=== PATIENT | female | born 2000 | race Hispanic/Latino ===

== ENCOUNTER 2025-08-16 17:46 | Emergency (ER) | payer OTHER ==
[~2025-08-16] VITALS: Ht 162.6 cm; Wt 65.8 kg
--- NOTE | 2025-08-16 17:59 | ERN ---
ED Note History of Present Illness Stated Complaint: BLOOD IN URINE Chief Complaint: Blood in Urine: Time Seen by MD: 17:52 Dictation: PATIENT IS A 25-YEAR-OLD FEMALE COMING IN TODAY WITH COMPLAINTS OF URINARY URGENCY AND FREQUENCY THIS STARTED OVER THE WEEKEND. NO FEVER NO CHILLS NO NAUSEA VOMITING. SHE HAD DENIES SUPRAPUBIC PAIN OR FLANK PAIN. SHE STATES SHE WAS WORKING AND UNABLE TO GO TO HER DOCTOR AND THEN TODAY, STARTED HAVING HEMATURIA. AGAIN SHE STATES THIS IS PAINLESS. STATES SHE HAS A HISTORY OF UTIS Allergies: Coded Allergies: No Known Drug Allergies (Unverified Allergy, Unknown, 08/16/25) Past Medical History Past Medical History: GERD Surgical History: None RN Note Reviewed/Agreed w/PFSH: Yes Review of System Dictation CONSTITUTIONAL: NEGATIVE EXCEPT FOR HPI HEAD/FACE: NEGATIVE EXCEPT FOR HPI EENT: NEGATIVE EXCEPT FOR HPI RESPIRATORY: NEGATIVE EXCEPT FOR HPI GASTROINTESTINAL/ABDOMINAL: NEGATIVE EXCEPT FOR HPI GENITOURINARY: NEGATIVE EXCEPT FOR HPI PAINLESS HEMATURIA MUSCULOSKELETAL: NEGATIVE EXCEPT FOR HPI INTEGUMENTARY: NEGATIVE EXCEPT FOR HPI NEUROLOGICAL/PSYCH: NEGATIVE EXCEPT FOR HPI HEMATOLOGIC/LYMPHATIC: NEGATIVE EXCEPT FOR HPI ALL SYSTEMS NEGATIVE, EXCEPT NOTED ABOVE. 13 POINT REVIEW OF SYSTEMS ASSESSED AND ALL NEGATIVE EXCEPT FOR ABOVE. Initial Vital Sign VS Vital Signs Date Time Temp Pulse Resp B/P (MAP) Pulse Ox O2 Delivery O2 Flow Rate FiO2 08/16/25 17:49 98.2 81 18 127/81 98 Physical Exam Dictation VITAL SIGNS REVIEWED GENERAL APPEARANCE: ALERT, ORIENTED X 3, NO ACUTE DISTRESS, WELL DEVELOPED, NOURISHED. 0/10, NO PAIN IN TRIAGE HEAD AND FACE: NON-TRAUMATIC. EYES: PERRL, PINK CONJUNCTIVAS, EYELID NO TRAUMA, ANTERIOR CHAMBER WITH ARCUS SENILIS. EARS: PINNAS INTACT AND NO SIGNS OF TRAUMA OR ERYTHEMA EAR CANALS CLEAR AND NO DISCHARGE TM NO ERYTHEMA NOSE: NO DISCHARGE, NO BLEEDING. OROPHARYNX: MOUTH NORMAL, TONGUE PINK, PHARYNX CLEAR,NO ERYTHEMA, TONSILS NO EXUDATES, NO ABSCESSES NOTED, MUCOUS MEM BRANE MOIST NECK: SUPPLE, NON-TENDER, NO THYROMEGALY, NO MASSES, NO JVD, NO BRUITS BREAST:DEFERRED CHEST:NO TENDERNESS, NO CREPITUS, NO PARADOXICAL MOVEMENT, NO RETRACTIONS LUNGS:CLEAR, WELL-VENTILATED, SYMMETRIC, NO RALES, NO WHEEZING, NO RHONCHI, NO STRIDOR, GOOD BREATH SOUNDS BILATERALLY HEART: REGULAR RATE, REGULAR RHYTHM, NO MURMUR, NO GALLOPS VASCULAR: NO PERIPHERAL EDEMA, ABDOMEN: SOFT, POSITIVE BOWEL SOUNDS, NONDISTENDED, NO GUARDING, NONTENDER, NO REBOUND, NO MASSES NO HEPATOMEGALY, NO SPLENOMEGALY, NO TEJEDA'S SIGN, NO HERNIAS. RECTAL: DEFERRED GENITAL: DEFERRED NEUROLOGICAL: NORMAL SPEECH, MOTOR FUNCTION INTACT, SENSORY FUNCTION INTACT MUSCULOSKELETAL: NECK NONTENDER, FULL RANGE OF MOTION, BACK NONTENDER, FULL RANGE OF MOTION, EXTREMITIES: NONTENDER, FULL RANGE OF MOTION SKIN: COLOR PINK, DRY, NO TURGOR, NO RASH, NO LACERATIONS, NO ABRASIONS, NO CONTUSIONS. LYMPHATIC: DEFERRED Results (Laboratory/Radiology) Laboratory/Radiology Laboratory Tests Test 08/16/25 18:00 Urine Color YELLOW (YELLOW) Urine Appearance CLOUDY (CLEAR) H Urine pH 7.0 (5.0-8.0) Urine Specific [place] 1.013 (1.001-1.031) Urine Protein 30 mg/dL (NEGATIVE) H Urine Glucose (UA) NEGATIVE mg/dL (NEGATIVE) Urine Ketones NEGATIVE mg/dL (NEGATIVE) Urine Occult Blood LARGE (NEGATIVE) H Urine Nitrate NEGATIVE (NEGATIVE) Urine Bilirubin NEGATIVE mg/dL (NEGATIVE) Urine Urobilinogen 0.2 mg/dL (0.2-1.0) Urine Leukocyte Esterase 500 Taylor/uL (NEGATIVE) H Urine RBC >100 /HPF (0-1) H Urine WBC 51-100 /HPF (0-1) H Urine WBC Clumps (Auto) FEW /HPF (0-1) Urine Squamous Epithelial Cells FEW /HPF (0-2) Urine Other Crystals (Auto) 6 /HPF (None Seen) Urine Bacteria RARE /HPF (None Seen) Urine Yeast FEW /HPF (None Seen) Urine HCG, Qualitative NEGATIVE (NEGATIVE) Labs Reviewed?: Yes ED Course ED Course Orders Procedure Category Date Status Time ,Urine Test LAB 08/16/25 Complete 17:57 Urinalysis Profile LAB 08/16/25 Complete 17:57 Culture Urine ACE 08/16/25 In Process 18:18 Ceftriaxone 1g Vial PHA 08/16/25 Transmitted (Rocephine 1g Inj) 19:00 Vital Signs Date Time Temp Pulse Resp B/P (MAP) Pulse Ox O2 Delivery O2 Flow Rate FiO2 08/16/25 17:49 98.2 81 18 127/81 98 1840/PATIENT HAS A ACUTE CYSTITIS WITH HEMATURIA. SHE AGREED TO ROCEPHIN 1 G RECEIVED AUGMENTIN 875 B.I.D. FOR FIVE DAYS Medical Decision Making MDM MEDICAL DISCHARGE MAKING BASED ON URINALYSIS AND DETERMINATION OF HCG NEGATIVE PATIENT HAS A ACUTE CYSTITIS WITH HEMATURIA ROCEPHIN 1 G GIVEN IM PATIENT WILL BE PLACED ON AUGMENTIN 875 B.I.D. FOR FIVE DAYS TOLD HER INCREASE YOUR WATER SEE YOUR PRIMARY CARE DOCTOR KNEE DX & DISP Disposition: Discharge Departure Impression: Primary Impression: Acute cystitis with hematuria Condition: Stable Scripts Amoxicillin/Potassium Clav (Amox Tr-K Clv 875-125 mg Tab) 875 Mg-125 Mg Tablet 1 EACH PO BID for 5 Days, #10 TAB 0 Refills Prov: BHARAT LOPEZ 08/16/25 Additional Instructions: FOLLOW-UP WITH PRIMARY CARE PROVIDER IN 1 TO 2 DAYS. TAKE MEDICATIONS DIRECTED HERE IN THE EMERGENCY ROOM. OKAY TO CONTINUE HOME MEDICATIONS UNLESS OTHERWISE DISCUSSED DURING YOUR VISIT IN THE EMERGENCY ROOM TODAY. RETURN TO YOUR NEAREST EMERGENCY ROOM IF SYMPTOMS WORSEN OR IF THERE IS NO IMPROVEMENT. CALL 911 IF YOU NEED IMMEDIATE ASSISTANCE. TAKE TYLENOL OR MOTRIN [id number] NEEDED AND IF NO CONTRAINDICATIONS ARE PRESENT. INCREASE ORAL HYDRATION. A WOUND CULTURE OR URINE CULTURE WAS ORDERED HERE IN THE EMERGENCY ROOM DEPARTMENT PLEASE FOLLOW-UP WITH PRIMARY CARE PROVIDER AND ADVISE THEM TO GET REPEAT PORTS FROM OUR FACILITY. IF YOU HAD ANY YAYA WRAP/SPLINTS THAT WERE APPLIED HERE, PLEASE DO NOT REMOVE THEM UNTIL YOU SEE YOUR PRIMARY CARE OR SPECIALTY. TAKE AUGMENTIN DIRECTED UNTIL GONE. INCREASE YOUR WATER INTAKE. TYLENOL OR MOTRIN [id number] NEEDED FOR FEVER PAIN. FOLLOW UP WITH THE YOUR PRIMARY CARE DOCTOR IN THE NEXT ONE TWO DAYS NEEDED Time of Disposition: 18:43 I have reviewed the case, and I agree with, Diagnosis and Plan BHARAT LOPEZ Aug 16, 2025 17:59
[2025-08-16 18:09] LABS: APPEARANCE,URINE CLOUDY (CLEAR); GLUCOSE, URINE (UA) NEGATIVE (NEGATIVE); LEUKOCYTE ESTERASE ,URINE 500 Leu/uL (NEGATIVE); NITRATE,URINE NEGATIVE (NEGATIVE); OCCULT BLOOD,URINE LARGE (NEGATIVE)
[2025-08-16 18:10] LABS: ADD UA MICROSCOPIC YES
[2025-08-16 18:12] LABS: HCG,QUALITATIVE URINE NEGATIVE (NEGATIVE)
[2025-08-16 18:20] LABS: SQUAMOUS EPITHELIAL CELL,UR FEW /HPF (0-2); UNCLASSIFIED CRYSTAL 6 /HPF (None Seen); WBC CLUMP FEW /HPF (0-1); YEAST,URINE BUDDING FEW /HPF (None Seen)
[2025-08-16 18:45] VITALS: BP 113/76; PULSE 71; RESP 18; TEMP 98.2; O2SAT 97
== END 2025-08-16 19:14 | disposition home or self-care (01) ==
LOC: EDH 17:46
DX: N30.01 Acute cystitis with hematuria (principal); K21.9 Gastro-esophageal reflux disease without esophagitis
CPT/HCPCS: 99283; 87086 ×2; 87186; 81001; 81025; 96372; J0696

== ENCOUNTER 2025-08-27 10:45 | Emergency (ER) | payer SELFPAY ==
[~2025-08-27] VITALS: Ht 162.6 cm; Wt 65.8 kg
[~2025-08-27 10:45] MED LIST: AMOX1TAB16 PO
[2025-08-27 10:47] VITALS: BP 116/72; PULSE 66; RESP 20; TEMP 98.2
[2025-08-27 11:02] LABS: ADD UA MICROSCOPIC YES; APPEARANCE,URINE HAZY (CLEAR); GLUCOSE, URINE (UA) NEGATIVE (NEGATIVE); LEUKOCYTE ESTERASE ,URINE 500 Leu/uL (NEGATIVE); NITRATE,URINE NEGATIVE (NEGATIVE); OCCULT BLOOD,URINE LARGE (NEGATIVE)
[2025-08-27 11:05] LABS: SQUAMOUS EPITHELIAL CELL,UR RARE /HPF (0-2)
[2025-08-27] MEDS ORDERED: NITR100C4 PO (11:07)
--- NOTE | 2025-08-27 11:08 | ERN ---
ED Note History of Present Illness Stated Complaint: PAINFUL URINATION Chief Complaint: Painful Urination Time Seen by MD: 10:55 Dictation: This is a 25-year-old female who presented to the emergency room complaining of dysuria that was very severe associated with lower abdominal pain. She had subjective fevers but no hematuria. She also reports frequency. Temperature 98.2 pulse 66 respirations 20 blood pressure 116/72 with a pulse oximetry of 99% on room air Allergies: Coded Allergies: No Known Drug Allergies (Unverified Allergy, Unknown, 08/16/25) Home Meds Active Scripts Nitrofurantoin Monohyd/M-Cryst (Macrobid 100 mg Capsule) 100 Mg Capsule, 1 CAP PO BID for 7 Days, #14 CAP 0 Refills Prov:TORREY CUELLO MD 08/27/25 Amoxicillin/Potassium Clav (Amox Tr-K Clv 875-125 mg Tab) 875 Mg-125 Mg Tablet, 1 EACH PO BID for 5 Days, #10 TAB 0 Refills Prov:BHARAT LOPEZ 08/16/25 Past Medical History Past Medical History: Asthma, GERD Surgical History: None Family History: Negative Social History: Negative LMP: Aug 06, 2025 RN Note Reviewed/Agreed w/PFSH: Yes Review of System Dictation Constitutional: Negative for fever,chills, and weight loss Eyes: Negative for injury, pain,redness, and discharge ENT: Negative for injury,pain or swelling Cardiovascular: Negative for chest pain, palpitations, and edema Respiratory: Negative for shortness of breath, cough, and wheezing, Abdomen/GI: Negative for abdominal pain, nausea, vomiting, diarrhea, and constipation Back: Negative for injury and pain : Negative for injury, bleeding and discharge positive for dysuria, lower abdominal discomfort MS/Extremity: Negative for injury and deformity Skin: Negative for rash, and discoloration Neuro: Negative for headache, weakness, numbness, tingling, and seizure Psych: Negative for suicide ideation, homicidal ideation, and hallucinations Initial Vital Sign VS Vital Signs Date Time Temp Pulse Resp B/P (MAP) Pulse Ox O2 Delivery O2 Flow Rate FiO2 08/27/25 10:47 98.2 66 20 116/72 99 Room Air 0 Physical Exam Dictation General: awake, alert, NAD Head/Face: Normocephalic, atraumatic Eyes: PERRL, EOMI, vision at baseline ENT: oral cavity clear, TMs clear, no signs of infection Neck: Trachea midline, supple, no nuchal rigidity Cardiovascular: RRR, normal S1/S2, No MRGs, no JVD Respiratory: CTAB, no respiratory distress, No rales or wheezes Abdomen: Soft, non-tender, non-distended, normal bowel sounds, no guarding or rebound. Skin: Warm, dry, normal turgor, no rash MS/Extremity: Pulses equal, no cyanosis, neurovascular intact, FROM Neuro: COAx4, GCS 15, strength 5/5, CN 2-12 intact, normal cerebellar exam, normal gait, Psych: Normal behavior, mood, and affect normal Extremities-trace edema without any palpable cords, Homans sign is negative Results (Laboratory/Radiology) Laboratory/Radiology Laboratory Tests Test 08/27/25 10:54 Urine Color STRAW (YELLOW) Urine Appearance HAZY (CLEAR) Urine pH 6.0 (5.0-8.0) Urine Specific [place] 1.002 (1.001-1.031) Urine Protein NEGATIVE mg/dL (NEGATIVE) Urine Glucose (UA) NEGATIVE mg/dL (NEGATIVE) Urine Ketones NEGATIVE mg/dL (NEGATIVE) Urine Occult Blood LARGE (NEGATIVE) H Urine Nitrate NEGATIVE (NEGATIVE) Urine Bilirubin NEGATIVE mg/dL (NEGATIVE) Urine Urobilinogen 0.2 mg/dL (0.2-1.0) Urine Leukocyte Esterase 500 Taylor/uL (NEGATIVE) H Urine RBC 0-1 /HPF (0-1) Urine WBC TNTC /HPF (0-1) H Urine Squamous Epithelial Cells RARE /HPF (0-2) Urine Bacteria RARE /HPF (None Seen) Labs Reviewed?: Yes ED Course ED Course Orders Procedure Category Date Status Time Urinalysis Profile LAB 08/27/25 Complete 10:47 Culture Urine ACE 08/27/25 In Process 11:03 Ceftriaxone 1g Vial PHA 08/27/25 Complete (Rocephine 1g Inj) 11:30 Current Medications Medications (Trade) Dose Ordered Sig/[place]aquille Route PRN Reason Start Time Stop Time Status Last Admin Dose Admin Ceftriaxone Sodium (ROCEphine 1G INJ) 1 gm ONCE ONCE IM 08/27/25 11:30 08/27/25 11:31 DC 08/27/25 11:22 Vital Signs Date Time Temp Pulse Resp B/P (MAP) Pulse Ox O2 Delivery O2 Flow Rate FiO2 08/27/25 10:47 98.2 66 20 116/72 99 Room Air 0 Medical Decision Making MDM Differential diagnosis-acute cystitis, colitis, constipation, appendicitis, ovarian cyst, pelvic inflammatory disease This is a 25-year-old female who presented to the emergency room complaining of dysuria that was very severe associated with lower abdominal pain. She had subjective fevers but no hematuria. She also reports frequency. Temperature 98.2 pulse 66 respirations 20 blood pressure 116/72 with a pulse oximetry of 99% on room air Urinalysis revealed very high amount of leuko esterase and too numerous to count WBCs consistent with acute cystitis with UTI. I updated the patient on the urinalysis results and plan to give her a dose of antibiotic. We will discharge her with outpatient antibiotic therapy Rationale: Tests considered and ordered secondary to shared decision making include: Urinalysis Previous outside records reviewed: Old ER visits. Risk of complication and/or morbidity or mortality of patient management: None Medications-Per medication reconciliation Need for hospitalization: Patient does not meet criteria for hospitalization. Need for emergency major/minor surgery: No There are no social concerns with this patient. Prescription drug management Prescriptions will include symptomatic care Patient's prior external medical records from other ER visits were reviewed by me as indicated. Prior testing and results from previous visits were reviewed. Prior tests were taken into account with medical decision making and resource utilization, independent historian/historians were used to obtain complete medical history. I independently interpreted the test that were performed, results were reviewed by me and considered findings on radiology if ordered. Medical management and examination interpretation discussions were had by me with other qualified healthcare professionals as indicated for the patient's care. Problem List Problem List: (1) Acute cystitis with hematuria DX & DISP Disposition: Discharge Departure Impression: Primary Impression: Acute cystitis with hematuria Condition: Stable Scripts Nitrofurantoin Monohyd/M-Cryst (Macrobid 100 mg Capsule) 100 Mg Capsule 1 CAP PO BID for 7 Days, #14 CAP 0 Refills Prov: TORREY CUELLO MD 08/27/25 Additional Instructions: Patient and the caregiver have been informed of all the diagnostic tests and the imaging conducted during the today's visit to the emergency room and has verbalized understanding of the results I have personally reviewed and interpreted all diagnostic exams performed here in the ER today as well as the vital signs documented by the nursing staff. The patient is now being discharged to home and should follow up with the primary care physician or the specialist as directed by the ER staff. 1 schedule a follow-up appointment; call your primary care physician's office on the next business day to set up a follow-up appointment. 2. Monitor symptoms; if your symptoms worsen return to the emergency room immediately. 3. Return to school/work; you may return to work or school in 2 days or as directed by your primary care physician. 4. Manage pain and fever; take [id number] Tylenol or Advil for pain or fever if there are no contraindications follow the recommended dosage instructions. 5. Stay well hydrated; drink plenty of oral fluids to stay hydrated. 6. Take prescribed medications; take any medications prescribed in the emergency room as directed bring them with you to your primary care physician visit for possible adjustments. 7. Complete medication course; finish the entire course of medication as prescribed even if you start feeling better. Do not have any leftover medication unless instructed otherwise. 8. Follow up on culture results; if a urine culture and wound culture was ordered in the emergency room please follow-up with your primary care physician within 2-3 days to review the culture and sensitivity report for appropriate antibiotic therapy adjustments. 9. Resume home medications; you may resume taking your home medications unless instructed otherwise. Referrals: SELF,REFERRAL (PCP) TORREY CUELLO MD Aug 27, 2025 11:08
== END 2025-08-27 11:33 | disposition home or self-care (01) ==
LOC: EDH 10:45
DX: N30.01 Acute cystitis with hematuria (principal); J45.909 Unspecified asthma, uncomplicated; K21.9 Gastro-esophageal reflux disease without esophagitis
CPT/HCPCS: 99283; 87086; 81001; 96372; J0696